=== PATIENT | male | born 1930 | race Caucasian/White ===

== ENCOUNTER 2021-02-10 07:11 | Outpatient (CLI) | payer MEDICARE, BC ==
[~2021-02-10] VITALS: Ht 180.3 cm; Wt 108.9 kg
[~2021-02-10 07:11] MED LIST: ASPIRIN E.C. 8181 MG PO; CALCIUM 600MG+D1 TAB PO; COZAAR100 MG PO; CYMBALTA 30MG30 MG PO; NORVASC2.5 MG PO
[2021-02-10 08:11] LABS: HEMATOCRIT 41.8 % (42.0-52.0); HEMOGLOBIN 14.3 g/dl (13.5-18.0); MEAN CELL VOLUME 104 fl (80.0-100.0); MEAN CORPUSCULAR HEMOGLOBIN 36 pg (27.0-31.0); MEAN CORPUSCULAR HGB CONC 34 g/dl (33.0-37.0); MEAN PLATELET VOLUME 10.3 fl (7.4-10.4); PLATELET COUNT 231 K/mm3 (130-400); RED BLOOD COUNT 4.03 M/mm3 (4.20-5.60); REDCELL DISTRIBUTION WIDTH-CV 12.3 % (11.5-14.5)
[2021-02-10 08:18] VITALS: BP 159/80; PULSE 60; TEMP 98.1
[2021-02-10 08:19] LABS: INR 1.1 (0.8-3.0); PROTHROMBIN TIME 11.8 SECONDS (9.7-12.8)
[2021-02-10 08:21] LABS: CALCIUM 9.5 mg/dL (8.4-10.2); CREATININE, serum 1.36 mg/dL (0.72-1.25); POTASSIUM 4.3 mmol/L (3.5-4.5)
[2021-02-10 09:50] VITALS: BP 147/72; PULSE 65
--- NOTE | 2021-02-10 09:57 | NUR ---
Report from Amadeo Peng.
[2021-02-10 10:00] VITALS: BP 148/83; PULSE 65
[2021-02-10 10:15] VITALS: BP 160/78; PULSE 65
[2021-02-10 10:30] VITALS: BP 166/87; PULSE 66
--- NOTE | 2021-02-10 11:09 | NUR ---
Discharge instructions given to pt.Pt verbalizes understanding.INT removed,catheter tip intact.Pt escorted out via wheelchair.
== END 2021-02-10 11:11 ==
LOC: COL.RAD 07:11
PROVIDERS: Internal Medicine Cardiovascular Disease
DX: I48.91 Unspecified atrial fibrillation (principal)
CPT/HCPCS: J2704